=== PATIENT | male | born 1970 | race Two or more races ===

== ENCOUNTER 2017-02-26 16:39 | Emergency (ER) | payer OTHER ==
[~2017-02-26] VITALS: Ht 185.4 cm; Wt 90.3 kg
--- NOTE | 2017-02-26 17:17 | Emergency Room Report ---
History of Present Illness General Chief Complaint: Lower Back Pain or Injury Source: Patient Present Illness HPI Patient presents with complaints of ongoing pain to the left lower back area Patient reports about 2 weeks ago had increased pain the lower back while on the airplane Patient was seen at urgent care given medications More recently seen by primary physician which recommended physical therapy Patient felt that more acutely he had worsening of his discomfort he felt the pain was going into the upper leg And felt weakness to his lower leg as well The weakness has improved however he feels discomfort to the upper thigh Denies any fevers or chills denies any chest pain or shortness of breath Denies any loss of control of bowel or urination denies any saddle paresthesia Allergies: Coded Allergies: No Known Allergies (Unverified , 02/26/17) Patient History Past Medical History: see triage record Pertinent Family History: none Reviewed Nursing Documentation: PMH: Agreed, PSxH: Agreed Nursing Documentation-PMH Hx Hypertension: Yes Review of Systems All Other Systems: negative except mentioned in HPI Physical Exam Vital Signs Date Time Temp Pulse Resp B/P Pulse Ox O2 Delivery O2 Flow Rate FiO2 02/26/17 16:52 98.2 123 17 133/89 99 Room Air Sp02 EP Interpretation: reviewed, normal General Appearance: well appearing, no apparent distress Head: normocephalic, atraumatic Eyes: bilateral eye EOMI, bilateral eye PERRL ENT: normal pharynx Neck: supple Respiratory: lungs clear Gastrointestinal: soft, no mass Musculoskeletal: other - Patient has tenderness in the left posterior superior iliac crest on palpation, patient was able to ambulate with assistance no evidence of foot drop, sensory is intact on the lower extremity Neurologic: alert, oriented x3, other - Patient feels he has increased discomfort and weakness was trying to flex at the hip on the left side Skin: normal color, no rash Lymphatic: no adenopathy Medical Decision Making Diagnostic Impression: Primary Impression: Low back pain Additional Impression: Radiculopathy ER Course Patient multiple differentials considered, including but not limited to neurological, neurosurgical, infectious pathology Initially the patient had complained of foot weakness as well Patient is able to bear weight, and is able to flex extend at the foot CT imaging shows, significant pathology Patient symptoms have been ongoing for over 2 weeks at this point I had an extended discussion with the patient, regarding the need for acute urgent neurosurgical consultation, we do not have a specialty at our facility, patient is continuing on prednisone and steroid, and requires followup in the next one day CT/MRI/US Diagnostic Results CT/MRI/US Diagnostic Results : Impression CT L-spineImpression: No acute bony trauma Positive for disc bulge and disc protrusion at L5-S1 with associated osteophytes, resulting in over 50% narrowing of the spinal canal at this level, and likely significant left neural foraminal compromise Mild circumferential annular bulge at L4-5, with possible left lateral recess compromise Last Vital Signs Date Time Temp Pulse Resp B/P Pulse Ox O2 Delivery O2 Flow Rate FiO2 02/26/17 16:52 98.2 123 17 133/89 99 Room Air Status: unchanged Disposition: HOME, SELF-CARE Condition: Stable Scripts Hydrocodone Bit/Acetaminophen 5-325* (NORCO 5-325*) 1 Each Tablet 1 TAB ORAL Q6H Y for For Pain, #10 TAB 0 Refills Prov: MELLO TELLO D.O. 02/26/17 Methocarbamol* (ROBAXIN-750*) 750 Mg Tablet 750 MG PO TID, #21 TAB 0 Refills Prov: MELLO TELLO D.O. 02/26/17 Additional Instructions: Patient is provided with the discharge instructions notified to follow up with primary physician today.If patient is not able to obtain acute specialty followup he requires visit to tertiary center with neurosurgical consultation that is available Please note that this report is being documented using [employer] technology. This can lead to erroneous entry secondary to incorrect interpretation by the dictating instrument. MELLO TELLO D.O. February 26, 2017 17:17
[2017-02-26] MEDS ORDERED: NORCO 5-325 TA1 EACH ORAL (18:01)
[2017-02-26] MEDS ORDERED: ROBAXIN-750750 MG PO (18:01)
[2017-02-26 18:03] VITALS: BP 127/92
[2017-02-26 18:10] VITALS: BP 127/92
--- NOTE | 2017-02-27 08:41 | Diagnostic Imaging Report ---
Indications: Low back pain for 2 weeks, refractory to medication now pain going into upper and lower leg Technique: Spiral acquisitions obtained through the lumbar spine. Multiplanar reconstructions were generated. No IV contrast utilized. Total dose length product 577 mGycm. CTDIvol(s) 15 mGy. Dose reduction achieved using automated exposure control Comparison: None Findings: No acute fractures. No dislocations. The bony alignment is normal. Vertebral body heights are preserved. At L5-S1, there is mild to moderate degenerative disc narrowing. There is endplate irregularity of the superior and inferior endplates. There is generalized circumferential annular bulge, as well as more focal posterior central and bilateral paracentral disc protrusion and osteophyte complex. The disc protrudes approximately 9 mm posterior to the posterior margin of vertebral body and results in just over 50% narrowing of the spinal canal at this level. It also impinges on the bilateral lateral recesses, left greater than right. There is significant compromise of the left neural foramen by the disc. There is also slight intrusion into the right neural foramen. At L4-5, there is generalized circumferential annular bulge, which does not significantly narrow the spinal canal but may impinge upon the left lateral recess. The neural foramina are preserved. At the remaining disc levels, no significant disc bulge or protrusion, spinal stenosis, or neural foraminal stenosis is demonstrated. The included extraspinal soft tissues are unremarkable. Impression: No acute bony trauma Positive for disc bulge and disc protrusion at L5-S1 with associated osteophytes, resulting in over 50% narrowing of the spinal canal at this level, and likely significant left neural foraminal compromise Mild circumferential annular bulge at L4-5, with possible left lateral recess compromise This agrees with the preliminary interpretation provided overnight by Dr. Lowry The CT scanner at [facility] is accredited by the [employer] and the scans are performed using protocols designed to limit radiation exposure to as low as reasonably achievable to attain images of sufficient resolution adequate for diagnostic evaluation.
== END 2017-02-26 18:10 | disposition home or self-care (01) ==
LOC: EMR 17:25
DX: M54.5 Low back pain (principal); M54.10 Radiculopathy, site unspecified; I10 Essential (primary) hypertension
CPT/HCPCS: 72131; 99284